=== PATIENT | female | born 1950 | race Caucasian/White ===

== ENCOUNTER 2023-10-30 03:35 | Inpatient (IN) | payer OTHER ==
[~2023-10-30] VITALS: Ht 157.5 cm; Wt 86.6 kg
[~2023-10-30 03:35] MED LIST: ONDA-8 TL
[2023-10-30 03:58] VITALS: BP_SYST 117; PULSE 92; RESP 20; TEMP 97.9; O2SAT 98
[2023-10-30] MEDS: METOCLOPRAMIDE HCL 10 MG/2 ML VIAL IVP ONE (04:46)
[2023-10-30] MEDS: NACL 0.9% 1,000 ML IV ONE (04:46)
[2023-10-30 04:47] LABS: BASOPHILS % (AUTO) 0.5 % (0.0-2.0); EOSINOPHILS # (AUTO) 0.1 K/uL (0.0-0.4); EOSINOPHILS % (AUTO) 1.6 % (0.0-4.0); HEMOGLOBIN 10.9 g/dL (12.0-16.0); LYMPHOCYTES # (AUTO) 1.8 K/uL (1.0-5.5); LYMPHOCYTES % (AUTO) 28.2 % (20.5-51.5); MEAN CORPUSCULAR HEMOGLOBIN 29 pg (27-31); MEAN CORPUSCULAR HGB CONC 33 % (32-36); MEAN CORPUSCULAR VOLUME 89 fL (79.0-98.0); MONOCYTES # (AUTO) 0.6 K/uL (0.0-1.0); MONOCYTES % (AUTO) 8.8 % (1.7-9.3); NEUTROPHILS # (AUTO) 3.9 K/uL (1.8-7.7); NEUTROPHILS % (AUTO) 60.9 % (40.0-70.0); PLATELET COUNT (AUTO) 347 K/uL (130-430); RED BLOOD CELL COUNT(AUTO) 3.73 MIL/uL (4.2-6.2); RED CELL DISTRIBUTION WIDTH 14.3 % (9.0-15.0); WHITE BLOOD COUNT (AUTO) 6.3 K/uL (4.8-10.8)
[2023-10-30 05:18] LABS: ALANINE AMINOTRANSFERASE 24 U/L (12-78); ALBUMIN 3.7 g/dL (3.4-4.8); ANION GAP 13 (5-15); ASPARTATE AMINOTRANSFERASE 16 U/L (10-37); BILIRUBIN,DIRECT 0.1 mg/dL (0.0-0.3); CALCIUM 9.7 mg/dL (8.4-11.0); CARBON DIOXIDE 21 mmol/L (23-29); CHLORIDE 105 mmol/L (98-107); CREATININE 1.84 mg/dL (0.55-1.30); GLUCOSE 169 mg/dL (74-106); LIPASE 54 U/L (16-77); POTASSIUM 3.7 mmol/L (3.5-5.1); SODIUM SERUM 139 mmol/L (136-145); TOTAL BILIRUBIN 0.4 mg/dL (0.0-1.0); TOTAL PROTEIN, SERUM 7.9 g/dL (6.4-8.3); UREA NITROGEN, BLOOD 55 mg/dL (8-21)
[2023-10-30 06:25] LABS: BILIRUBIN,URINE NEGATIVE (NEGATIVE); BLOOD, URINE NEGATIVE (NEGATIVE); CLARITY/URINE CLEAR (CLEAR); COLOR,URINE YELLOW (YELLOW); GLUCOSE,URINE NEGATIVE (NEGATIVE); KETONES,URINE NEGATIVE (NEGATIVE); LEUKOCYTE ESTERASE ,URINE TRACE (NEGATIVE); NITRITE, URINE NEGATIVE (NEGATIVE); PH,URINE 5.5 (5.0-8.0); PROTEIN URINE NEGATIVE (NEGATIVE); UROBILINOGEN,URINE 0.2 (0.2-1.0)
[2023-10-30 06:33] LABS: BACTERIA,URINE FEW /HPF (None Seen); RBC,URINE 0-3 /HPF (0-3)
[2023-10-30 06:34] LABS: MUCUS,URINE None Seen /LPF (None Seen)
[2023-10-30] MEDS: NS 500 ML IV ONE (07:08)
[2023-10-30] MEDS ORDERED: ANAS1TAB51 (07:15)
[2023-10-30] MEDS ORDERED: PANT40TA45 PO (07:15)
[2023-10-30] MEDS ORDERED: LOSA100T24 PO (07:15)
[2023-10-30] MEDS ORDERED: METF-381 PO (07:15)
[2023-10-30] MEDS ORDERED: ATOR40TA68 PO (07:15)
[2023-10-30] MEDS ORDERED: VERA180T59 PO (07:15)
[2023-10-30] MEDS ORDERED: PIOG15TA67 PO (07:15)
[2023-10-30 10:12] LABS: COVID19 ANTIGEN SOFIA FIA NEGATIVE (NEGATIVE)
[2023-10-30 10:15] LABS: INFLUENZA TYPE A Negative (NEGATIVE); INFLUENZA TYPE B NEGATIVE (NEGATIVE)
[2023-10-30] MEDS ORDERED: ONDANSETRON HCL 4 MG/2 ML VIAL IVP PRN (10:45)
[2023-10-30] MEDS: PANTOPRAZOLE SODIUM 40 MG/VIAL (PROTONIX) IVP ONE (12:45)
[2023-10-30] MEDS: METOCLOPRAMIDE HCL 10 MG/2 ML VIAL IVP PRN (12:46)
[2023-10-30] MEDS ORDERED: ONDANSETRON 4 MG ODT TAB TL PRN (13:30)
[2023-10-30] MEDS: D5/0.45 NS 1,000 ML IV SCH (13:45)
[2023-10-30 13:52] VITALS: BP_SYST 123; PULSE 95; RESP 16; TEMP 98.6; O2SAT 97
[2023-10-30] MEDS: ANASTROZOLE 1 MG TABLET (ARIMIDEX) PO ONE (15:47)
[2023-10-30] MEDS: METOCLOPRAMIDE HCL 10 MG TABLET PO SCH (18:00)
[2023-10-30 20:00] VITALS: BP_SYST 145; PULSE 80; RESP 18; TEMP 97.9; O2SAT 94
[2023-10-30] MEDS ORDERED: metFORMIN HCL 500 MG TABLET PO SCH (21:00)
[2023-10-30] MEDS: ATORVASTATIN 20 MG TABLET PO SCH (21:10)
[2023-10-30] MEDS: INSULIN LISPRO SLIDING SCALE 100 UNITS/ML, 3 ML VIAL (humaLOG) SUBCUT PRN (21:18)
[2023-10-31 00:05] VITALS: BP_SYST 118; PULSE 63; RESP 18; TEMP 98.2; O2SAT 96
[2023-10-31 08:00] VITALS: BP_SYST 128; PULSE 82; RESP 18; TEMP 98; O2SAT 94
[2023-10-31 09:00] VITALS: O2SAT 96
[2023-10-31] MEDS: ANASTROZOLE 1 MG TABLET (ARIMIDEX) PO SCH (09:37)
[2023-10-31] MEDS: PANTOPRAZOLE SODIUM 40 MG TAB PO SCH (09:37)
[2023-10-31] MEDS: LOSARTAN POTASSIUM 50 MG TABLET (COZAAR) PO SCH (09:38)
[2023-10-31 11:31] VITALS: BP_SYST 130; PULSE 86; RESP 17; TEMP 96.5; O2SAT 95
[2023-10-31 11:35] LABS: BASOPHILS # (AUTO) 0.1 K/uL (0.0-0.2); EOSINOPHILS # (AUTO) 0.1 K/uL (0.0-0.4); HEMOGLOBIN 10.7 g/dL (12.0-16.0); LYMPHOCYTES # (AUTO) 1.2 K/uL (1.0-5.5); LYMPHOCYTES % (AUTO) 21.4 % (20.5-51.5); MEAN CORPUSCULAR HEMOGLOBIN 29 pg (27-31); MEAN CORPUSCULAR HGB CONC 33 % (32-36); MEAN CORPUSCULAR VOLUME 89 fL (79.0-98.0); MONOCYTES # (AUTO) 0.5 K/uL (0.0-1.0); MONOCYTES % (AUTO) 9.3 % (1.7-9.3); NEUTROPHILS # (AUTO) 3.8 K/uL (1.8-7.7); NEUTROPHILS % (AUTO) 67.3 % (40.0-70.0); PLATELET COUNT (AUTO) 337 K/uL (130-430); RED BLOOD CELL COUNT(AUTO) 3.69 MIL/uL (4.2-6.2); RED CELL DISTRIBUTION WIDTH 14.4 % (9.0-15.0); WHITE BLOOD COUNT (AUTO) 5.7 K/uL (4.8-10.8)
[2023-10-31 11:46] LABS: ANION GAP 11 (5-15); CALCIUM 9.2 mg/dL (8.4-11.0); CARBON DIOXIDE 24 mmol/L (23-29); CHLORIDE 107 mmol/L (98-107); CREATININE 1.12 mg/dL (0.55-1.30); GLUCOSE 157 mg/dL (74-106); PHOSPHORUS 2.7 mg/dL (2.7-4.5); POTASSIUM 3.7 mmol/L (3.5-5.1); SODIUM SERUM 142 mmol/L (136-145); UREA NITROGEN, BLOOD 25 mg/dL (8-21)
[2023-10-31 16:16] VITALS: BP_SYST 136; PULSE 95; RESP 17; TEMP 96.7; TEMP 97.5; O2SAT 97
[2023-10-31 20:00] VITALS: BP_SYST 144; PULSE 98; RESP 18; TEMP 98.1; O2SAT 77; O2SAT 98
[2023-11-01] VITALS (7 sets, daily range): BP systolic 140–158; PULSE 80–104; RESP 18; TEMP 97.4–98.8; O2SAT 73–97
[2023-11-01 07:18] LABS: BASOPHILS # (AUTO) 0.1 K/uL (0.0-0.2); BASOPHILS % (AUTO) 1.2 % (0.0-2.0); EOSINOPHILS # (AUTO) 0.1 K/uL (0.0-0.4); EOSINOPHILS % (AUTO) 2.7 % (0.0-4.0); HEMATOCRIT 30.7 % (36-48); HEMOGLOBIN 10.3 g/dL (12.0-16.0); LYMPHOCYTES # (AUTO) 1.4 K/uL (1.0-5.5); LYMPHOCYTES % (AUTO) 27.7 % (20.5-51.5); MEAN CORPUSCULAR HEMOGLOBIN 30 pg (27-31); MEAN CORPUSCULAR HGB CONC 34 % (32-36); MEAN CORPUSCULAR VOLUME 89 fL (79.0-98.0); MONOCYTES # (AUTO) 0.5 K/uL (0.0-1.0); MONOCYTES % (AUTO) 10.4 % (1.7-9.3); PLATELET COUNT (AUTO) 317 K/uL (130-430); RED BLOOD CELL COUNT(AUTO) 3.45 MIL/uL (4.2-6.2); RED CELL DISTRIBUTION WIDTH 14.6 % (9.0-15.0); WHITE BLOOD COUNT (AUTO) 5.1 K/uL (4.8-10.8)
[2023-11-01 07:45] LABS: ANION GAP 10 (5-15); CALCIUM 8.9 mg/dL (8.4-11.0); CARBON DIOXIDE 24 mmol/L (23-29); CHLORIDE 110 mmol/L (98-107); CREATININE 1.07 mg/dL (0.55-1.30); GLUCOSE 159 mg/dL (74-106); POTASSIUM 3.8 mmol/L (3.5-5.1); SODIUM SERUM 144 mmol/L (136-145); UREA NITROGEN, BLOOD 17 mg/dL (8-21)
[2023-11-01] MEDS: cefTRIAXone 1 GM in D5W 50 ML IV ONE (16:31)
[2023-11-01] MEDS: MAGNESIUM SULFATE 50 ML IV ONE (17:09)
[2023-11-01] MEDS: NORMAL SALINE 5 ML DISP.SYRIN IVF SCH (17:10)
[2023-11-02 00:16] VITALS: BP_SYST 130; PULSE 65; RESP 15; TEMP 97.5; O2SAT 97
[2023-11-02 06:29] LABS: BASOPHILS # (AUTO) 0.1 K/uL (0.0-0.2); BASOPHILS % (AUTO) 0.9 % (0.0-2.0); EOSINOPHILS # (AUTO) 0.1 K/uL (0.0-0.4); EOSINOPHILS % (AUTO) 2.1 % (0.0-4.0); HEMATOCRIT 31.3 % (36-48); HEMOGLOBIN 10.4 g/dL (12.0-16.0); LYMPHOCYTES # (AUTO) 1.7 K/uL (1.0-5.5); LYMPHOCYTES % (AUTO) 27.1 % (20.5-51.5); MEAN CORPUSCULAR HEMOGLOBIN 30 pg (27-31); MEAN CORPUSCULAR HGB CONC 33 % (32-36); MEAN CORPUSCULAR VOLUME 89 fL (79.0-98.0); MONOCYTES # (AUTO) 0.5 K/uL (0.0-1.0); MONOCYTES % (AUTO) 7.2 % (1.7-9.3); NEUTROPHILS % (AUTO) 62.7 % (40.0-70.0); PLATELET COUNT (AUTO) 310 K/uL (130-430); RED CELL DISTRIBUTION WIDTH 14.5 % (9.0-15.0); WHITE BLOOD COUNT (AUTO) 6.4 K/uL (4.8-10.8)
[2023-11-02 06:48] LABS: ERYTHROCYTE SEDIMENTATION RATE 42 MM/HR (0-20)
[2023-11-02 06:59] LABS: ALANINE AMINOTRANSFERASE 20 U/L (12-78); ALBUMIN 3.3 g/dL (3.4-4.8); ANION GAP 10 (5-15); ASPARTATE AMINOTRANSFERASE 15 U/L (10-37); CARBON DIOXIDE 24 mmol/L (23-29); CHLORIDE 109 mmol/L (98-107); CREATININE 1.08 mg/dL (0.55-1.30); GLUCOSE 146 mg/dL (74-106); PHOSPHORUS 3.2 mg/dL (2.7-4.5); POTASSIUM 3.8 mmol/L (3.5-5.1); SODIUM SERUM 143 mmol/L (136-145); TOTAL BILIRUBIN 0.3 mg/dL (0.0-1.0); UREA NITROGEN, BLOOD 19 mg/dL (8-21)
[2023-11-02 08:00] VITALS: BP_SYST 152; PULSE 75; RESP 17; TEMP 97.4; O2SAT 96
[2023-11-02 09:00] VITALS: O2SAT 96
[2023-11-02] MEDS: cefTRIAXone 1 GM in D5W 50 ML IV SCH (10:57)
[2023-11-02 12:00] VITALS: BP_SYST 146; PULSE 82; RESP 18; TEMP 97.3; O2SAT 96
[2023-11-02] MEDS ORDERED: LEVO250T73 PO (13:55)
[2023-11-02 15:59] VITALS: BP_SYST 130; PULSE 76; RESP 16; TEMP 98; O2SAT 98
== END 2023-11-02 16:15 | disposition home or self-care (01) | DRG 683 ==
LOC: SED 03:35 → UNDOADMIN 10:42 → SMU 10:42 → UNDOADMOB 11:31 → OBSVTOIN 11:31 → INTOOBSV 11:31 → SMU 11:31 → OBSVTOIN 11-01 15:26
PROVIDERS: ADMIT Specialist; ATTEND Specialist
DX: N17.9 Acute kidney failure, unspecified (principal); N39.0 Urinary tract infection, site not specified; K52.9 Noninfective gastroenteritis and colitis, unspecified; E86.0 Dehydration; E66.01 Morbid (severe) obesity due to excess calories; I12.9 Hypertensive chronic kidney disease with stage 1 through stage 4 chronic kidney disease, or unspecified chronic kidney disease; K21.9 Gastro-esophageal reflux disease without esophagitis; Z20.822 Contact with and (suspected) exposure to COVID-19; D64.9 Anemia, unspecified; N18.31 Chronic kidney disease, stage 3a; E78.5 Hyperlipidemia, unspecified; E11.65 Type 2 diabetes mellitus with hyperglycemia; E83.42 Hypomagnesemia; E11.22 Type 2 diabetes mellitus with diabetic chronic kidney disease; Z90.49 Acquired absence of other specified parts of digestive tract; Z79.899 Other long term (current) drug therapy; Z68.34 Body mass index [BMI] 34.0-34.9, adult
CPT/HCPCS: 36415; 76770; 80048; 80053; 80076; 81000; 81001; 81015; 82948; 83037; 83690; 83735; 84100; 84484; 85025; 85651; 87086; 87186; 93005; 96361; 96374; 96375; 99285; J0696; J2470; J2765; J3475; J7060; J8597